=== PATIENT | female | born 1970 ===

== ENCOUNTER 2018-03-09 12:24 | Emergency (ER) | payer OTHER ==
[~2018-03-09] VITALS: Ht 170.2 cm; Wt 63.5 kg
[2018-03-09 12:34] VITALS: BP 125/79
[2018-03-09] MEDS ORDERED: BACITRACIN-POLYMYXIN B TOPICAL OINT UD TOP ONE (14:15)
== END 2018-03-09 14:58 | disposition home or self-care (01) ==
LOC: ER 12:24
DX: S00.83XA Contusion of other part of head, initial encounter (principal); X58.XXXA Exposure to other specified factors, initial encounter; Y93.89 Activity, other specified; Y99.8 Other external cause status; Y92.89 Other specified places as the place of occurrence of the external cause
CPT/HCPCS: 70450